=== PATIENT | female | born 1970 | race Caucasian/White ===

== ENCOUNTER → 2016-10-16 | Day surgery (SDC) | payer OTHER ==
[~2016-10-16] MED LIST: ACETAMINOPHEN 1000 MG/100 ML VIAL IV ONE; LACTATED RINGER'S 1,000 ML BAG IV ONE; LACTATED RINGER'S 1000 ML INJ 1,000 ML ONE; LIDOCAINE HCL 1% 50 ML VIAL ONE; MEPERIDINE HCL 25 MG/ML VIAL ONE; MIDAZOLAM HCL 2 MG/2 ML VIAL ONE; NEOMYCIN/POLYMYXIN/BACITRACIN OINT 15 GM TUBE ONE; ONDANSETRON HCL 4 MG/2 ML VIAL IV PUSH ONE; PROPOFOL 100 MG/10 ML INJ IV ONE; ceFAZolin INJ 1,000 MG VIAL ONE
--- NOTE | 2016-10-16 13:05 | TN ---
cc: CALLUM ELLIOTT M.D. DATE OF SURGERY 10/16/2016 PREOPERATIVE DIAGNOSIS Lipodystrophy of the torso. POSTOPERATIVE DIAGNOSIS Lipodystrophy of the torso. PROCEDURE [facility]. SURGEON Callum Elliott MD [facility] ANESTHESIA LMA general. ESTIMATED BLOOD LOSS Minimal. COMPLICATIONS None. I&O's 3500 in, out 3500 TOTAL ENERGY 80,000 joules. PROCEDURE She was properly consented, marked anesthetized, the skin sterilized with Betadine solution and a sterile Tulip draping system was applied. Puncture wounds were done utilizing an 11-blade where tumescent fluid was properly delivered in 1000 cc of normal saline, a combination of 30 cc of 1% lidocaine plain and 1 cc of epinephrine 1:1000. As the tumescent was let work, I proceeded to delivery the energy, 40,000 per anterior upper and lower abdomen and 20,000 per each flank for a grand total of 80,000. I proceeded to perform the evacuation of the effluent utilizing a 4.5 and then a 3.5-mm Micro A cannula. The puncture wounds were closed utilizing 5-0 chromic suture and Steri-Strips applied and abdominal binder applied thereafter. Overall the patient tolerated the procedure well. She was awakened, extubated in the operating room, transferred back to the Postanesthesia Care Unit in stable condition. No complications appreciated. The patient tolerated the procedure fairly well. MD ARCADIO Ash/ODILON /12:27 PM /12:59 PM
== END | disposition home or self-care (01) ==
LOC: ESDC 08:14
PROVIDERS: ATTEND Plastic Surgery
DX: Z41.1 Encounter for cosmetic surgery (principal)
CPT/HCPCS: 00400; 15877; J0131; J0690; J2175; J2250; J2405; J3010; J7120